=== PATIENT | female | born 1960 | race Caucasian/White ===

== ENCOUNTER 2020-02-06 15:37 | Outpatient (CLI) | payer MEDICARE, SELFPAY ==
--- NOTE | ~2020-02-06 | XR_ITS ---
EXAMINATION: XR lumbar spine 2-3V EXAM DATE: 02/06/2020 15:56 INDICATION: Low back pain, no known injury. TECHNIQUE: Lumber spine frontal, lateral, lateral L5-S1 projections for interpretation. Comparison is made to prior examination from 11/14/2019. FINDINGS: The vertebral bodies are aligned in the AP dimension. There is mild to moderate compressio n fracture at the superior endplate of L4, unchanged compared to prior study and therefore likely chr onic. There is also mild compression fracture of T12 at the superior endplate which could be new comp ared to previous exam. There are biiliac stents. There is mild to moderate lumbar facet arthropathy. Paraspinal soft tissue is unremarkable. Sacrum, sacroiliac joints, sacral arcuate lines are intact. IMPRESSION: 1. T12 mild compression fracture, could be new compared to October. 2. Chronic L4 compression fracture. 3. Mild to moderate facet arthropathy. Reviewed, dictated and finalized at location A.
== END 2020-02-06 15:38 | disposition home or self-care (01) ==
PROVIDERS: PCP Family Medicine; Visit Provider Family Medicine
DX: S32.009A Unspecified fracture of unspecified lumbar vertebra, initial encounter for closed fracture (principal)
CPT/HCPCS: 72100

== ENCOUNTER 2020-02-09 08:18 | Outpatient (CLI) | payer MEDICARE, SELFPAY ==
--- NOTE | ~2020-02-09 | DEXA_ITS ---
BMD(1) Young-Adult(2) Age-Matched(3) Region (g/cm2) T-score Z-score WHO Classification L1 0.794 -2.8 -1.6 Osteoporosis L2 0.784 -3.5 -2.3 Osteoporosis L3 1.041 -1.4 -0.2 Osteopenia L4 1.110 -0.8 0.4 Normal L1-L4 0.945 -2.0 -0.8 Osteopenia Trend: L1-L4 Change vs Change vs Measured Age BMD(1) Baseline Previous Date (years) (g/cm2) (%) (%) 02/09/2020 [age] 0.945 baseline - 1 - Statistically 68% of repeat scans fall within 1SD (+- 0.010 g/cm2 for AP Spine L1-L4) 2 - [place] (Combined NHANES (ages 20-30) / [employer] (ages 20-40)) AP Spine Reference Population (v112) 3 - Matched for Age, Weight (females 25-100 kg), Ethnic 11 - World Health Organization - Definition of Osteoporosis and Osteopenia for Women: Normal = T-score at or above -1.0 SD; Osteopenia = T-score between -1.0 and -2.5 SD; Osteoporosis = T-score at or below -2.5 SD; (WHO definitions only apply when a young healthy Women reference database is used to determine T-scores.) Printed: 02/09/2020 9:07:10 AM (13.60)76:3.00:50.00:12.0 0.00:10.62 0.60x1.05 20.9:%Fat=31.9% 0.00:0.00 0.00:0.00 Filename: [id number] Scan Mode: Standard;OneScan 37.0 [place] [id number] BMD(1) Young-Adult(2,7) Age-Matched(3) Region (g/cm2) T-score Z-score WHO Classification Neck Left 0.674 -2.6 -1.3 Osteoporosis Right 0.574 -3.3 -2.1 Osteoporosis Mean 0.624 -3.0 -1.7 Osteoporosis Difference 0.100 0.7 0.7 - Total Left 0.689 -2.5 -1.6 Osteoporosis Right 0.583 -3.4 -2.4 Osteoporosis Mean 0.636 -3.0 -2.0 Osteoporosis Difference 0.106 0.8 0.8 - Hip [place] Length Comparison (mm) (Right = 100.3 mm) (Mean = 105.2 mm) (Left = 103.9 mm) Trend: Total Mean Change vs Change vs Measured Age BMD(1) Baseline Previous Date (years) (g/cm2) (%) (%) 02/09/2020 59.9 0.636 baseline - 1 - Statistically 68% of repeat scans fall within 1SD (+- 0.010 g/cm2 for DualFemur Total) 2 - [place] (Combined NHANES (ages 20-30) / [employer] (ages 20-40)) Femur Reference Population (v112) 3 - Matched for Age, Weight (females 25-100 kg), Ethnic 7 - Dual[employer]em[employer] Total T-score difference is 0.8. Asymmetry is Mild. 11 - World Health Organization - Definition of Osteoporosis and Osteopenia for Women: Normal = T-score at or above -1.0 SD; Osteopenia = T-score between -1.0 and -2.5 SD; Osteoporosis = T-score at or below -2.5 SD; (WHO definitions only apply when a young healthy Women reference database is used to determine T-scores.) Printed: 02/09/2020 9:07:10 AM (13.60); Filename: [id number]; Right Femur; 18.6:%Fat=30.9%; Neck Angle (deg)= 62; Scan Mode: Standard 37.0 uGy; Left Femur; 17.5:%Fat=37.1%; Neck Angle (deg)= 66; Scan Mode: Standard 37.0 uGy Clew [id number] Dear Urban Ellis, Your patient Skye Lopez completed a BMD test on 02/09/2020 using the Clew DXA System (analysis version: 13.60) manufactured by [employer]. The following summarizes the results of our evaluation. PATIENT BIOGRAPHICAL: Name: Skye Lopez Date: 1960 Height: 64.0 in.
== END 2020-02-09 08:19 | disposition home or self-care (01) ==
LOC: CHSIMG 08:20
PROVIDERS: PCP Family Medicine; Visit Provider Family Medicine
DX: S32.009A Unspecified fracture of unspecified lumbar vertebra, initial encounter for closed fracture (principal)
CPT/HCPCS: 77080

== ENCOUNTER 2020-02-22 10:41 | Outpatient (CLI) | payer MEDICARE, SELFPAY ==
--- NOTE | ~2020-02-22 | XR_ITS ---
EXAMINATION: XR chest 2V DATE: 02/22/2020 11:10 INDICATION: Cough TECHNIQUE: PA and lateral views of the chest are obtained. COMPARISON: 11/16/2019 FINDINGS: A diffuse interstitial pattern is present without significant change. There is no pleural e ffusion or pneumothorax. Stable cardiomegaly is noted. Median sternotomy wires and mediastinal surgic al clips are seen, likely from prior coronary artery bypass grafting. There is a single living defibr illator of the right chest wall ending with its lead in the right ventricle. There is moderate thorac ic spondylosis. An unchanged nodule of the right lung is consistent with old granulomatous disease. IMPRESSION: 1. Cardiomegaly with mild pulmonary edema, unchanged. Reviewed, dictated and finalized at location B.
[2020-02-22 10:54] LABS: Basophils Absolute Auto 0.02 K/mm3 (0.00-0.10); Basophils Percent Auto 0.2 % (0.0-1.0); Eosinophils Absolute Auto 0.03 K/mm3 (0.02-0.50); Eosinophils Percent Auto 0.3 % (1.0-6.0); Hematocrit 44.9 % (35.0-49.0); Hemoglobin 13.9 g/dL (12.0-15.0); Immature Granulocyte Absolute 0.09 K/mm3 (0.00-0.00); Immature Granulocyte Percent A 0.9 % (0.0-0.0); Lymphocytes Absolute Auto 2.44 K/mm3 (1.10-4.50); Lymphocytes Percent Auto 24.5 % (18.0-42.0); Mean Corpuscular Hemoglobin 29.8 pg (27.0-31.0); Mean Corpuscular Volume 96.1 fL (78.0-102.0); Mean Platelet Volume 9.9 fl (9.2-11.8); Monocytes Absolute Auto 1.23 K/mm3 (0.10-0.90); Monocytes Percent Auto 12.3 % (2.0-11.0); Neutrophils Absolute Auto 6.2 K/mm3 (1.7-7.2); Neutrophils Percent Auto 61.8 % (50.0-70.0); Platelet Count Result 214 K/mm3 (150-420); Red Blood Count 4.67 M/mm3 (4.20-5.40); Red Cell Distribution Width 17.2 % (11.6-14.4)
[2020-02-22 11:18] LABS: CRP 2.4 mg/dL (0.0-0.9)
[2020-02-22 11:53] LABS: Erythrocyte Sedimentation Rate 22 mm/hr (0-20)
== END 2020-02-22 10:42 | disposition home or self-care (01) ==
LOC: CHSLAB 10:43
PROVIDERS: PCP Family Medicine; Visit Provider Family Medicine
DX: R05 Cough (principal); R06.00 Dyspnea, unspecified; J84.10 Pulmonary fibrosis, unspecified
CPT/HCPCS: 36415; 71046; 85025; 85652; 86140

== ENCOUNTER 2021-01-16 16:27 | Outpatient (CLI) | payer MEDICARE, SELFPAY ==
--- NOTE | ~2021-01-16 | XR_ITS ---
XR lumbar spine 2-3V DATE: 01/16/2021 17:06 INDICATION: Upper and lower back pain TECHNIQUE: AP, lateral and coned lateral lumbosacral views COMPARISON: 02/06/2020 lumbar spine FINDINGS: There is diffuse severe osteopenia. Moderate anterior wedge compression fracture deformity at T12 with vertebroplasty. Mild to moderate anterior wedge compression fracture deformities of L2 and L4 with vertebroplasty bev nges. Normal alignment of the lumbar vertebrae. No spondylolisthesis. The lumbar pedicles appear intact. The sacroiliac joints appear intact. There is extensive calcification of the abdominal aorta and iliac arteries. Common iliac artery stents. IMPRESSION: Severe osteopenia Status post vertebroplasty at compression fractures of T12, L2 and L4. Reviewed, dictated and finalized at location B. E CLEANER
--- NOTE | ~2021-01-16 | XR_ITS ---
XR thoracic spine 2V DATE: 01/16/2021 17:08 INDICATION: Upper and lower back pain. History of osteoporosis and vertebroplasty. TECHNIQUE: AP, lateral and swimmer views COMPARISON: 11/14/2019 CT pulmonary scan FINDINGS: Prominent diffuse osteopenia. Since 11/14/2019 there is moderate anterior wedge compression fracture deformity of T7. There is similarly an interval prominent compression fracture deformity of T12, with vertebroplasty. Status post vertebroplasty at L2. Status post sternotomy and coronary bypass graft surgery. Right defibrillator/pacemaker lead overlying right ventricle. IMPRESSION: Severe osteopenia Compression fracture deformities of T7, T12, new since 11/14/2019 Status post vertebroplasty at T12 and L2 Reviewed, dictated and finalized at location B. TANCE ABUSE THERAPIST
== END 2021-01-16 16:28 | disposition home or self-care (01) ==
LOC: CHSIMG 16:29
PROVIDERS: PCP Family Medicine; Visit Provider Nurse Practitioner Family
DX: M54.9 Dorsalgia, unspecified (principal)
CPT/HCPCS: 72070; 72100

== ENCOUNTER 2021-03-05 14:24 | Outpatient (CLI) | payer MEDICARE, SELFPAY ==
--- NOTE | ~2021-03-05 | XR_ITS ---
EXAMINATION: XR thoracic spine 3V DATE: 03/05/2021 14:55 INDICATION: Back pain TECHNIQUE: AP, lateral and lateral swimmer's views of the thoracic spine were obtained. COMPARISON: 01/16/2021 FINDINGS: There are stable compression fractures of T12 and L2 with vertebroplasty change. There is a stable compression fracture of T7. There is a new compression fracture of T9 with approximately 10% loss of vertebral body height since the prior examination. There is a new compression fracture of L1 with 30% loss of anterior vertebral body height. Bone alignment is normal. There is moderate loss of intervertebral disc space height at multiple levels in the thoracic spine. A single lead cardiac pace maker of the right chest wall ends with lead in expected location. Median sternotomy wires and medias tinal surgical clips are seen, likely from prior coronary artery bypass grafting. IMPRESSION: 1. New compression fractures of the T9 and L1 vertebral bodies and stable compression fractures of th e T7, T12, and T2 vertebral bodies. Reviewed, dictated and finalized at location A. IMPRESSION: 1. New compression fractures of the T9 and L1 vertebral bodies and stable compr ession fractures of the T7, T12, and T2 vertebral bodies.
== END 2021-03-05 14:25 | disposition home or self-care (01) ==
LOC: CHSIMG 14:26
PROVIDERS: PCP Family Medicine; Visit Provider Nurse Practitioner Adult Health
DX: M48.54XA Collapsed vertebra, not elsewhere classified, thoracic region, initial encounter for fracture (principal)
CPT/HCPCS: 72072

== ENCOUNTER 2021-03-24 12:53 | Outpatient (CLI) | payer MEDICARE, SELFPAY ==
--- NOTE | ~2021-03-24 | CT_ITS ---
EXAMINATION: CT thoracic lumbar wo con EXAM DATE: 03/24/2021 13:35 INDICATION: Wedge Compression checking/f-u new fx of spine, hx of T12, L2, L4 fx with surg TECHNIQUE: Spiral CT thoracolumbar spine was performed without contrast. Axial, coronal and sagittal images of the thoracic spine were reviewed. Axial, coronal and sagittal images of the lumbar spine we re reviewed. The dose-length product (DLP) for this examination was 892.18 mGy-cm. The exposure was tailored according to patient size (auto mA exposure control), and iterative reconstruction (ASIR) wa s used as additional dose reduction technique. Correlation is made to thoracic x-ray 03/05/2021. FINDINGS: Bones are osteopenic. THORACIC SPINE: Patient has compression/burst fractures at T12 and L2 which have been treated with me thylmethacrylate injection. Moderate to severe loss of the T12 level height anteriorly and mild to mo derate loss of the L2 height, both appear stable. There may also be slight interval progression in the amount of height loss to the T9 vertebral body c ompared to earlier this month. Previously seen T7 fracture appears unchanged both with moderate loss of their height. At L1 mild burst fracture, involving the posterior superior aspect of the vertebral body as well, onl y 2 mm retropulsion. Probably subacute given faint sclerosis and that this finding was present on x-r ay earlier this month. There is an acute appearing L3 mild to moderate compression fracture, loss of height at the superior endplate centrally. This level is only partially imaged on the x-ray earlier this month, but suspect that it was not present on that examination. L4 has mild to moderate loss of its height, has also been treated with methylmethacrylate. Probably s table. L5 appears to have maintained its height. There is some sclerosis of the sacral ala bilateral ly, probably subacute or chronic insufficiency fractures. There is lumbar spondylosis with mild to mo derate arthropathy. Central canal appears most narrowed at L4 with mild to moderate stenosis. Number than mild to moderate neural foraminal stenosis at any given level. Patient has at least moderate interstitial lung disease. Mildly aneurysmal mid abdominal aorta at 2.8 cm. Extensive aortic arterial sclerosis. Bilateral common iliac stents. IMPRESSION: 1. Chronic fractures T7, T12, L2, L4 (later 3 treated). 2. Probable mild progression T9 fracture. 3. Subacute L1 burst fracture, only minimal retropulsion. 4. Acute L3 compression fracture. 5. Sacral insufficiency fractures, probably subacute or chronic. 6. At least moderate interstitial lung disease. Reviewed, dictated and finalized at location A.
== END 2021-03-24 12:54 | disposition home or self-care (01) ==
LOC: CHSIMG 12:56
PROVIDERS: PCP Family Medicine; Visit Provider Nurse Practitioner Adult Health
DX: S22.000A Wedge compression fracture of unspecified thoracic vertebra, initial encounter for closed fracture (principal); S32.000A Wedge compression fracture of unspecified lumbar vertebra, initial encounter for closed fracture
CPT/HCPCS: 72128; 72131

== ENCOUNTER 2021-04-05 09:50 | Outpatient (CLI) | payer MEDICARE, SELFPAY ==
--- NOTE | ~2021-04-05 | XR_ITS ---
XR thoracic spine 3V 04/05/2021 10:40 Indication: Back pain. No recent injury. Procedure: 3 views thoracic spine Comparison: CT dated 03/24/2021 and x-ray series dated 03/05/2021 Findings: There are chronic compression fractures of T12 and L2 treated with vertebroplasty. There is a stable superior endplate compression fracture of L1. There is stable T7 burst fracture. There has been progression of T9 compression fracture since prior study. There is a new compression fracture of T10. Generalized osteopenia. Mild levocurvature of the thoracic spine. Status post median sternotomy for CABG. Pacemaker leads in expected position. There are coarse interstitial changes in the lung ba ses with honeycombing, likely chronic fibrosis. Impression: 1: Progression of T9 compression fracture since prior study. New T10 compression fracture. 2: Stable fractures of T7, T12, L1 and L2. Reviewed, dictated and finalized at location A. Impression: 1: Progression of T9 compression fracture since prior study. New T10 compressio n fracture. 2: Stable fractures of T7, T12, L1 and L2.
--- NOTE | ~2021-04-05 | XR_ITS ---
XR lumbar spine 2-3V 04/05/2021 10:41 Indication: Mid and lower back pain. Procedure: 3 views lumbar spine Comparison: 01/16/2021 Findings: There are chronic compression fractures of T12, L2 and L4 with vertebroplasty changes. Ther e are iliac stents. There are age-indeterminate new superior endplate compression fracture of L1 and L3 since prior examination. There is 3.2 cm infrarenal abdominal aortic aneurysm. Mild levocurvature of the lumbar spine. Impression: 1: New age-indeterminate superior endplate compression fractures of L1 and L3. 2: Chronic compression fractures of T12, L2 and L4 with associated vertebral changes. 3: Infrarenal abdominal aortic aneurysm measuring 3.2 cm. Reviewed, dictated and finalized at location A. Impression: 1: New age-indeterminate superior endplate compression fractures of L1 and L3. 2: Chronic compression fractures of T12, L2 and L4 with associated vertebral ch anges. 3: Infrarenal abdominal aortic aneurysm measuring 3.2 cm.
== END 2021-04-05 09:51 | disposition home or self-care (01) ==
LOC: CHSIMG 09:52
PROVIDERS: PCP Family Medicine; Visit Provider Family Medicine
DX: M54.5 Low back pain (principal); M54.6 Pain in thoracic spine
CPT/HCPCS: 72072; 72100

== ENCOUNTER 2021-07-08 17:05 | Emergency (ER) | payer MEDICARE, SELFPAY ==
[2021-07-08 17:16] VITALS: BP 127/87; PULSE 72; RESP 22; TEMP 36.8; O2SAT 95
--- NOTE | 2021-07-08 17:45 | ED.BACK ---
HPI - Back Pain/Injury General Chief Complaint: Back Pain/Injury Stated Complaint: AMB Time Seen by Provider: 07/08/21 17:07 Source: patient, family and RN notes reviewed Mode of arrival: EMS Limitations: no limitations History of Present Illness MD elicited complaint: back pain Pertinent past history: prior back pain and back surgery Onset (ago): day(s) (1) Timing: constant and improved (with increased home analgesia.) Severity: mild Pain scale (0-10): 5 Similar Symptoms Previously: Yes Quality: dull and aching Location: lumbar spine Radiation: none Exacerbating factors: movement Relieving factors: sitting upright Context: unknown Associated symptoms: arthralgias and myalgias Treatments prior to arrival: prescription analgesics Work related injury: No Related Data Home Medications Medication Instructions Recorded Confirmed aspirin 81 mg tablet,delayed 81 mg PO DAILY 11/14/19 07/08/21 release losartan 50 mg PO DAILY 11/14/19 07/08/21 guaifenesin [Mucus Relief ER] 1,200 mg PO Q12HR PRN 07/08/21 07/08/21 Allergies Allergy/AdvReac Type Severity Reaction Status Date / Time doxycycline Allergy Unknown Unknown Verified 02/20/21 15:42 Review of Systems Review of Systems: All systems reviewed & are unremarkable except as noted in HPI and below Constitutional: Constitutional: Reports as per HPI and Reports no additional constitutional complaints Eyes: Eyes: Reports as per HPI and Reports no additional eye complaints ENT: Reports system reviewed and no additional complaints, except as documented and Reports as per HPI Cardiovascular: Cardiovascular: Reports as per HPI and Reports no additional cardiovascular complaints Respiratory: Respiratory: Reports as per HPI and Reports no additional respiratory complaints Gastrointestinal: Gastrointestinal: Reports as per HPI and Reports no additional gastrointestinal complaints Genitourinary: Genitourinary: Reports no additional female genitourinary complaints and Reports as per HPI Musculoskeletal: Musculoskeletal: Reports no additional musculoskeletal complaints Integumentary/Breasts: Skin/Breast: Reports system reviewed and no additional complaints, except as docu and Reports as per HPI Neurologic: Reports system reviewed and no additional complaints, except as documented and Reports as per HPI Psychiatric: Psychiatric: Reports no additional psychiatric complaints and Reports as per HPI Endocrine: Endocrine: Reports no additional endocrine complaints and Reports as per HPI Hematologic/Lymphatic: Hematologic/Lymphatic: Reports no additional hematologic/lymphatic complaints and Reports as per HPI Allergic/Immunologic: Allergic/Immunologic: Reports no additional allergic/immunologic complaints and Reports as per HPI [facility] Past Medical History Medical History CAD (coronary artery disease) Cardiac defibrillator in place Clubbing of nail Depression DVT (deep venous thrombosis) Femoral artery stenosis VIRGIE (generalized anxiety disorder) GERD (gastroesophageal reflux disease) Hypertension Smoking Surgical History Surgical History History of heart artery stent x3 in 2001 History of hysterectomy Age 30 Hx of CABG S/P insertion of iliac artery stent Family History Family History Father Acute myocardial infarction Mother Acute myocardial infarction Social History Social History Social History: Denies hx of recreational drug use or opiod abuse. Smoking packs per day: 0.5 Smoking cigarettes per day: 10.0 Years smoked: 35 Smoking pack-years: 17.50 Smoking status: Never smoker Tobacco type: cigarettes Second hand tobacco smoke exposure: Yes Alcohol intake: current Drinks per week: 0 Additional living arrangements comments: . 3 Children. Additional occupati
[2021-07-08] MEDS: KETOROLAC (*BKC) 60 MG/2 ML VIAL IM (17:55)
[2021-07-08] MEDS: MORPHINE SULFATE (*CRX) 4 MG/ML INJ IM (18:45)
[2021-07-08 18:51] VITALS: BP 128/70; PULSE 88; RESP 22; TEMP 36.6; O2SAT 96
== END 2021-07-08 19:07 | disposition home or self-care (01) ==
PROVIDERS: Emergency Provider Emergency Medicine; PCP Family Medicine
DX: M54.16 Radiculopathy, lumbar region (principal)
CPT/HCPCS: 96372; 99283; 99284; J1885; J2270

== ENCOUNTER 2021-07-12 16:35 | Outpatient (CLI) | payer MEDICARE, SELFPAY ==
--- NOTE | ~2021-07-12 | XR_ITS ---
EXAMINATION: XR thoracic spine 3V DATE: 07/12/2021 17:17 INDICATION: Thoracic spine pain. TECHNIQUE: One AP, lateral and lateral swimmer's views of the thoracic spine were obtained. COMPARISON: 04/05/2021 FINDINGS: Mild lower thoracic kyphosis. Chronic compression fractures with vertebroplasty is at T12, L2 and L4. No significant change in chronic compression fractures with moderate vertebral body height loss at T 7 and T9 and with mild vertebral body height loss at L1. Interval progression of mild compression fra ctures at T10 and T11. New compression fracture with moderate vertebral body height loss at T5. Disc heights are relatively preserved. Visualized portions of the lungs are clear. No pneumothorax or pleu ral effusion. Visualized portion of the cardiomediastinal silhouette is normal. Median sternotomy wir es, ostial markers and mediastinal surgical clips consistent with prior coronary artery bypass grafti ng. There has also been prior coronary artery stenting. Dual lead pacemaker/AICD seen with leads proj ecting over the expected locations of the right atrial appendage and near the apex of the right ventr icle. Atherosclerotic abdominal aorta. IMPRESSION: 1. New moderate severity T5 compression fracture and progression of mild compression fractures at T10 and T11. 2. Several additional chronic compression fractures including at T12, L2 and L4 there has been prior vertebroplasties. Reviewed, dictated and finalized at location A. IMPRESSION: 1. New moderate severity T5 compression fracture and progression of mild compre ssion fractures at T10 and T11. 2. Several additional chronic compression fractures including at T12, L2 and L4 there has been prior vertebroplasties.
== END 2021-07-12 16:36 | disposition home or self-care (01) ==
LOC: CHSIMG 16:37
PROVIDERS: PCP Family Medicine; Visit Provider Nurse Practitioner Adult Health
DX: M54.6 Pain in thoracic spine (principal)
CPT/HCPCS: 72072

== ENCOUNTER 2021-09-02 16:06 | Outpatient (CLI) | payer MEDICARE, SELFPAY ==
--- NOTE | ~2021-09-02 | XR_ITS ---
EXAMINATION: XR lumbar spine 2-3V DATE: 09/02/2021 16:46 INDICATION: Chronic low back pain. TECHNIQUE: 3 views of lumbar spine were obtained. COMPARISON: Lumbar spine radiographs 04/05/2021, thoracic spine radiographs 07/12/2021 FINDINGS: There is 5 degrees levocurvature of lumbar spine. Again seen are chronic fractures of T11, T12, L1, L2, L3, and L4 vertebral bodies with changes of vertebroplasty at T12, L2, and L4. There is mildly decreased disc height at T12-L1. There is multilevel mild to moderate facet joint osteoarthrit is. There are stents in the common iliac arteries. IMPRESSION: 1. No acute fracture. 2. Mild lumbar spondylosis. Reviewed, dictated and finalized at location A.
--- NOTE | ~2021-09-02 | XR_ITS ---
EXAMINATION: XR chest 2V DATE: 09/02/2021 16:45 INDICATION: Severe shortness of breath and cough TECHNIQUE: frontal and lateral views of the chest were obtained. COMPARISON: Chest radiograph dated 02/22/2020 FINDINGS: Small lung volumes with peripheral and lower lung predominant coarse reticular opacities. No pleural effusion or pneumothorax. The cardiomediastinal silhouette is normal. Median sternotomy wires, ostial markers and mediastinal surgical clips consistent with prior coronary artery bypass grafting. Dual l ead pacemaker/AICD seen with leads projecting over the expected locations of the right atrium and rig ht ventricle. Lower thoracic vertebroplasty. IMPRESSION: 1. Small lung volumes with coarse peripheral and lower lung predominant reticular opacities. Differen tial would include mild pulmonary edema or more chronic interstitial lung disease. Reviewed, dictated and finalized at location B. IMPRESSION: 1. Small lung volumes with coarse peripheral and lower lung predominant reticul ar opacities. Differential would include mild pulmonary edema or more chronic i nterstitial lung disease.
[2021-09-02 16:34] LABS: Basophils Absolute Auto 0.04 K/mm3 (0.00-0.10); Basophils Percent Auto 0.4 % (0.0-1.0); Hematocrit 43.2 % (35.0-49.0); Hemoglobin 13.5 g/dL (12.0-15.0); Immature Granulocyte Absolute 0.35 K/mm3 (0.00-0.00); Immature Granulocyte Percent A 3.9 % (0.0-0.0); Lymphocytes Absolute Auto 0.53 K/mm3 (1.10-4.50); Lymphocytes Percent Auto 5.9 % (18.0-42.0); Mean Corpuscular HGB Conc 31.3 g/dL (32.0-36.0); Mean Corpuscular Hemoglobin 32.8 pg (27.0-31.0); Mean Corpuscular Volume 105.1 fL (78.0-102.0); Mean Platelet Volume 10.3 fl (9.2-11.8); Monocytes Absolute Auto 0.52 K/mm3 (0.10-0.90); Monocytes Percent Auto 5.8 % (2.0-11.0); Neutrophils Absolute Auto 7.6 K/mm3 (1.7-7.2); Platelet Count Result 190 K/mm3 (150-420); Red Blood Count 4.11 M/mm3 (4.20-5.40); Red Cell Distribution Width 14.2 % (11.6-14.4)
[2021-09-02 17:43] LABS: Alanine Aminotransferase 19 U/L (14-59); Albumin Level 3.2 g/dL (3.4-5.0); Alkaline Phosphatase 72 U/L (46-116); Anion Gap 11 mmol/L (8-16); Aspartate Amino Transferase 11 U/L (15-37); Bilirubin,Total 0.4 mg/dL (0.00-1.00); Blood Urea Nitrogen 18 mg/dL (7-18); Calcium 9.6 mg/dL (8.5-10.1); Carbon Dioxide 33 mmol/L (21-32); Chloride 98 mmol/L (98-108); Estimated Glomerular Filt Rate > 60; Free T4 Free Thyroxine 0.97 ng/dL (0.76-1.46); Glucose 290 mg/dL (70-99); Osmolality Calculated 306 mOsm/kg (285-295); Potassium 3.8 mmol/L (3.5-5.1); Sodium 142 mmol/L (136-145); Thyroid Stimulating Hormone 0.35 uIU/mL (0.36-3.74); Total Protein 6.8 g/dL (6.4-8.2)
[2021-09-03 15:30] LABS: Hemoglobin A1C 7.6 % (<5.7)
== END 2021-09-02 16:07 | disposition home or self-care (01) ==
LOC: CHSLAB 16:11
PROVIDERS: PCP Nurse Practitioner Family; Visit Provider Nurse Practitioner Family
DX: J44.1 Chronic obstructive pulmonary disease with (acute) exacerbation (principal); M54.50 Low back pain, unspecified; R82.998 Other abnormal findings in urine; E03.9 Hypothyroidism, unspecified; R73.09 Other abnormal glucose
CPT/HCPCS: 36415; 71046; 72100; 80053; 83036; 84439; 84443; 85025; 87086; 87088